=== PATIENT | female | born 1945 | race Caucasian/White ===

== ENCOUNTER 2023-02-14 12:19 | Emergency (ER) | payer OTHER, MEDICARE, SELFPAY ==
--- NOTE | 2023-02-14 12:21 | ED.UPPEXIN ---
HPI - Extremity Injury (Upper) General Chief Complaint: Wound/Laceration Stated Complaint: Thumb lac Time Seen by Provider: 02/14/23 12:40 Source: patient, family, RN notes reviewed and old records reviewed Mode of arrival: ambulatory Limitations: no limitations History of Present Illness HPI narrative: 76-year-old female is here today for left thumb laceration. Patient was using straight edge blade for wood crafting when the a blade slipped and cut her left thumb. Patient had tetanus vaccine in 2019. Patient is not on any blood thinners. Patient denies any crush injury. Bleeding controlled. complaint: injury to: left Related Data Allergies Allergy/AdvReac Type Severity Reaction Status Date / Time amoxicillin Allergy Intermediate Hives Verified 02/14/23 12:22 Review of Systems Review of Systems: Constitutional : No Weight loss, No Fever, No Chills, No Night Sweats, No Fatigue, No Malaise Musculoskeletal : No joint pain, No Myalgias, No Joint Swelling Skin : No Skin Lesions, No rash, left thumb laceration Neuro : No Weakness, No Numbness, No Paresthesias, No Loss of Consciousness, No Dizziness, No Headache Psych : No Anxiety/Panic, No Depression, No SI/HI/AH/VH, No Social Issues, Yes all other systems are reviewed and are negative PMFSH Social History Social History Advance Directives: No Advance Directives Information Provided: No Physical Exam Vital Signs: Vital Signs: Last Vital Signs Temp 97.9 F 02/14/23 12:22 Pulse 70 02/14/23 12:22 Resp 16 02/14/23 12:22 BP 160/86 H 02/14/23 12:22 Pulse Ox 96 02/14/23 12:22 BMI result Body Mass Index 20.4 Const: General: healthy appearing, no acute distress and well developed Nutritional Appearance: well nourished Skin: Other: Laceration to left thumb General skin exam: turgor normal and dry skin Trauma: laceration (L thumb) Course Course Course Narrative: RME: 77yo F w/no sig PMHx c/o laceration to L some s/p using a razor blade to cut wood [employer]. Tetanus unknown. Denies crush injury 2 cm laceration noted to left PIP. Active bleeding Tdap and lidocaine ordered Full HPI, ROS and PE to be performed by primary ED provider. 77-year-old female is here today for left thumb laceration. Patient was using straight edge blade for wood crafting when the a blade slipped and cut her left thumb. Patient had tetanus vaccine in 2019. Patient is not on any blood thinners. Patient denies any crush injury. Bleeding controlled . Patient reports that she is taking fish oil. Total 7 stitches. Patient will return to ED in 10 days for stitch removal or her own PCP Medications Administered Discontinued Medications Generic Name Dose Route Start Last Admin Trade Name Ana PRN Reason Stop Dose Admin Bacitracin 1 appl 02/14/23 13:25 02/14/23 13:27 Bacitracin Oint 0.9 Gm Packet TOPICAL 02/14/23 13:26 1 appl ONCE ONE Administration Protocol Diphtheria/Tetanus/Acell Pertussis 0.5 ml 02/14/23 12:26 02/14/23 12:38 Diphth,Pertus(Acell),Tet Adult 0.5 Ml Syringe IM 02/14/23 12:27 Not Given .ONCE ONE Lidocaine HCl 5 ml 02/14/23 12:26 02/14/23 12:35 Lidocaine Hcl 1 % Mpf 5 Ml Vial INFILTRATI 02/14/23 12:27 5 ml ONCE ONE Administration Procedures Laceration Laceration 1: Site: other ( thumb) Side (If applicable): left Size (cm): 2.5 Description: flap and clean Depth: simple, single layer Local Anesthetic: lidocaine 1% Pre-repair: irrigated extensively Skin layer closed with: nylon Size (cm): 4-0 Number of sutures: 7 Technique: simple, interrupted Discharge Plan Discharge Clinical Impression: Laceration Patient Disposition: Home, Self-Care Instructions: Laceration (ED) Additional Instructions: you were seen here today for laceration of your left thumb. Total 7 stitches done. Apply bacitracin. You should return for stitch removal in 10 days. Observe for increased redness, drainage and pain. You may take Tylenol for discomfort. Interventions: ED Discharge Assessment Last Done: 02/14/23 13:37
[2023-02-14 12:22] VITALS: BP 160/86; PULSE 70; RESP 16; TEMP 36.6; O2SAT 96; BMI 20.4
[2023-02-14] MEDS: Lidocaine HCl 1 % MPF 5 ML VIAL INFILTRATI (12:35)
[2023-02-14] MEDS: Bacitracin Oint 0.9 GM PACKET 1 APPL TOPICAL (13:27)
--- NOTE | 2023-02-14 13:37 | PC.NURSE ---
pt wound cleansed with NS, provider placed 7 sutures in thumb- bacitracin applied followed by nonstick dressing kerlix and tape- pt verbalizes understanding of dc instructions
== END 2023-02-14 13:55 | disposition home or self-care (01) ==
LOC: HO.ED 13:40
PROVIDERS: Emergency Provider Emergency Medicine; PCP Nurse Practitioner Primary Care
DX: S61.012A Laceration without foreign body of left thumb without damage to nail, initial encounter (principal); W26.8XXA Contact with other sharp object(s), not elsewhere classified, initial encounter; Y93.89 Activity, other specified; Y92.9 Unspecified place or not applicable; Y99.9 Unspecified external cause status; Z23 Encounter for immunization
CPT/HCPCS: 12001; 90471; 90715; 99282; 99284

== ENCOUNTER 2024-10-29 09:18 | Emergency (ER) | payer OTHER, MEDICARE, SELFPAY ==
[2024-10-29 09:24] VITALS: BP 139/86; PULSE 70; RESP 16; TEMP 36.1; O2SAT 100; BMI 22.1
[2024-10-29 10:04] LABS: MANUAL DIFF FLAG NO
[2024-10-29 10:06] LABS: Hematocrit 39.9 % (37.0-47.0); Hemoglobin 13.5 g/dl (12.0-16.0); Imm Gran Abs Auto 0.01 X10*3/uL (0.00-0.03); Imm Gran Pct Auto 0.2 % (0.0-0.4); Lymphocytes Absolute Auto 1.8 X10*3/uL (1.2-4.9); Mean Corpuscular HGB Conc 33.8 g/dl (31.0-35.0); Mean Corpuscular Hemoglobin 32.0 pg (27.0-33.0); Mean Corpuscular Volume 94.5 fL (80.0-98.0); NRBC Abs Auto 0.000 X10*3/uL (0.0-0.012); NRBC Pct Auto 0.0 /100WBC (0.0-0.2); Platelet Count 251 X10*3/uL (160-400); Red Blood Count 4.22 X10*6/uL (4.20-5.50); White Blood Count 5.8 X10*3/uL (4.8-10.8)
[2024-10-29 10:21] LABS: Alanine Aminotransferase 19 U/L (0-31); Albumin Level 4.4 g/dL (3.5-5.0); Alkaline Phosphatase 60 U/L (39-117); Anion Gap 13 (12-20); Aspartate Amino Transferase 21 U/L (5-31); Blood Urea Nitrogen 19 mg/dL (9-16); Calcium 9.4 mg/dL (8.4-10.2); Carbon Dioxide 29 mmol/L (22-29); Chloride 104 mmol/L (96-108); Creatinine Clr Calc Pharmacy 49.9; Estimated Glomerular Filt Rate > 60; Lipase 20 U/L (8-78); Potassium 4.5 mmol/L (3.3-5.1); Sodium 141 mmol/L (135-145); Total Protein 6.8 g/dL (6.5-8.0)
--- NOTE | 2024-10-29 10:28 | PC.NURSE ---
PAtient presents to ED c/o of diarrhea. Patient had recent foreign travel to [facility] for one week and returned one week ago. Symptoms started Wednesday, patient kept going to bathroom producing liquid only no solid stools denies blood in stool. Patient used imodium at home with some effect on Wednesday. Symptoms havent subsided. Unintentional weightloss of 6 pounds over a week, patient able to eat and drink ok. Denies fevers, chills, sick contacts. Pain in abdomen stomach cramps rated 3/10. + bowel sounds non tender. VSS and up to date. Provider in to see patient. Plan of care on going
--- OUTSIDE RECORDS SUMMARY | 2024-10-29 10:41 | XMS_ITS | Data Portability ---
Author Organization [place] - [facility], Allergy Address [address] [place] [id number] Care Team Providers Care Correspondence Review Clerk Name Role Phone PASCUALMESERET FIORE Primary Care Provider Assessment No assessment recorded. Plan of Treatment Reminders Order Date Submit Date Provider Last Modified By Organization Details Last Modified Time Details Appointments Establish ed 15 2025 09:45A M ADRIENNE EDWARDS MD Not available Not available Not available Lab None recorded. Referral None recorded. Procedures None recorded. Surgeries None recorded. Imaging None recorded. Medication Orders ipratropi um bromide 21 mcg (0.03 %) nasal spray 2024 025 [id number], [address] [place], [place], [phone], 08/31/2024 10:15:13 ipratropi um bromide 21 mcg (0.03 %) nasal spray 2024 025 [facility] #[id number], [address] [place], [place], [phone], 08/31/2024 09:56:48 Patient TargetsNo targets recorded. Patient InstructionsNo instructions recorded. Reason for Referral None Reported. Problems Name Problem SNOMED Code Status Onset Date Resolution Date Notes Provider Name and Address Organization Details Recorded Time Chronic rhinitis 65119213 Active 025 ADRIENNE EDWARDS MD [address] [facility],[place] [address], [place], [address] , [facility] 10:10:44 Problem Notes None recorded. Procedures Surgical History Date Name Laterality Status Provider Name and Address Organization Details Recorded Time JMSNasal/Sinus Endoscopy completed ADRIENNE EDWARDS MD [address], [address], [facility] 07/06/2024 10:18:15 nasal septoplasty completed ADRIENNE EDWARDS MD [address], [address], [facility] 07/09/2024 12:45:28 Imaging Results None recorded. Procedure Notes None recorded. Medical Equipment None Reported. Allergies Allergen ID Allergen Name Allergen Category Reaction Reaction Severity Criticality Documentation Date Start Date Code Code System Note Provider Name and Address Organization Details Recorded Time 327023 amoxicill in medicatio n Not available Not available Not available 07/06/2024 723 RxNorm Joseline manning [facility] 09:59:39 Medications Name Sig Start Date Stop Date Status Note LastModified by Organization Details LastModified Time azithromyci n 250 mg tablet TAKE 2 TABLETS BY MOUTH ONCE FOR 1 DAYS THEN 1 TABLET DAILY FOR 4 DAYS 08/31 completed Not Available Not Available Not Available acetazolami de 125 mg tablet TAKE 1 TABLET BY MOUTH TWICE DAILY. MAY BE DISCONTIN UED AFTER STAYING AT THE SAME ELEVATION FOR 2 TO 4 DAYS OR IF DESCENT IS INITIATED active Not Available Not Available No t Available fluorouraci l 5 % topical cream APPLY TWICE DAILY TO THE AFFECTED AREA ON THE NOSE FOR 4 WEEKS. EXPECT REDNESS AND IRRITATIO N 08/31 completed Not Available Not Available Not Available ketorolac 0.5 % eye drops INSTILL 1 DROP IN SURGICAL EYE THREE TIMES DAILY FOLLOWING SURGERY FOR 3 WEEKS 08/31 completed Not Available Not Available Not Available mupirocin 2 % topical ointment APPLY SMALL AMOUNT TOPICALLY TO THE AFFECTED AREA THREE TIMES DAILY 08/31 completed Not Available Not Available Not Available ipratropium bromide 21 mcg (0.03 %) nasal spray USE 2 SPRAYS IN EACH NOSTRIL THREE TIMES DAILY active Not Available Not Available No t Available Xiidra 5 % eye drops in a dropperette INSTILL 1 DROP INTO BOTH EYES DAILY 08/31 completed Not Available Not Available Not Available Vitals Date Recorded Body height Body mass index (BMI) Body weight Provider Name and Address Organization Details Last Updated DateTime 07/06/2024 160.02 cm 20.7 kg/m2 63058.31 sean Joseline Donna [facility] 07/06/2024 09:59:32 Date Recorded Body height Body mass index (BMI) Body weight Provider Name and Address Organization Details Last Updated DateTime 08/31/2024 160.02 cm 20.5 kg/m2 49454.71 sean Trevizo Donna [facility] 08/31/2024 09:56:30 Social History None recorded. Functional Status None recorded. Mental Status None recorded. Family History Nothing Reported. Medical History No medical history recorded. Gynecological HistoryNo gynecological history recorded. Obstetrics History GPAL:G 0 P 0 0 0 0 Past Encounters Encounter ID Performer Location Encounter Start Date Encounter Closed Date Diagnosis/Indication Diagnosis SNOMED-CT Code Diagnosis ICD10 Code Diagnosis Note [id number] ADRIENNE EDWARDS MD [facility] on [address] [place] [id number] 07/06/2024 09:39:22 07/06/2024 10:26:13 Chronic rhinitis 05765007 J31.0 78-year-ol d female with a history of septoplast y and long COVID presents today for chronic nasal drainage, worse on the right. Exam today reveals no active drainage. There is a tiny septal perforatio n. There is no polyps or purulence. She has had allergy workup in the past which did not really show any significan t allergens. She has tried over-the-c ounter medication s which have not been helpful. I recommende d trying ipratropiu m. If no improvemen t, would proceed with CT to evaluate for any chronic sinus findings which could be contributi ng to her symptoms. [id number] ADRIENNE EDWARDS MD [facility] on [address] [place] [id number] 08/31/2024 09:45:43 08/31/2024 10:19:47 Chronic rhinitis 32794857 J31.0 78-year-ol d female with a history of septoplast y and long COVID presents today for chronic nasal drainage, worse on the right. About 50% improvemen t with ipratropiu m. She has not been using it regularly 2 or 3 times a day so she will try it in this manner. Since there is partial response to the ipratropiu m, we will hold off on CT for now. Will reassess in about a year, and she would consider whether she would want evaluation for Clarifix or Rhinaer. Health Concerns Section Related Observation LastModified by Organization Detai ls LastModified Time None Recorded Concern Status LastModified by Organization Details LastModified Time None Recorded Advance Directives Directive None Recorded Payers Insurance Date Sequence Insurance Name Policy Number Policy Schuler Covered Member ID Schuler Member ID Guarantor Name 08/31/2024 2 [place] [employer] (POS) Brittany Beck [id number] Brittany Beck 07/10/2024 2 [place] [employer] Brittany Ruba [id number] Brittany Beck 08/31/2024 1 [place] [employer] Brittany Beck [id number] Brittany Beck Notes Date Note Type Note Provider Name and Address Organization Details Recorded Time 07/06/2024 text/html 78 yo F presents for chronic rhinitis chronic dripping right nose more than left for yearsseptoplasty years ago helped bronchitis and pneumoniabetter illness this yearworse with walking around previously frequent sinus infectionsnot since 2019did have severe COVID - long covid no sinus imaging for years has some seasonal allergies, mostly otc antihistamine, flonase, minimal results, no ipratropiumallergy testing several years ago, no significant no head traumano glaucoma ADRIENNE EDWARDS MD [address] [place] [address],[address], [address], [place] - [facility] 07/09/2024 12:48:30 08/31/2024 text/html 2 sprays on the right, once on the lefthelps 50/50has reduced nose blowingexercising can bring drainage on ADRIENNE EDWARDS MD [address] [place] [address],[address], [address], [place] - [facility] [place] 08/31/2024 12:42:47 OBGyn Episode No OBEpisode recorded.
[2024-10-29 10:46] VITALS: BP 141/88; PULSE 67; RESP 16; TEMP 36.6; O2SAT 97
[2024-10-29 11:05] LABS: Appearance Urine Clear; Glucose Urine UA Negative (Negative); PH 5.5 (5.0-9.0); Specific Gravity - Urine 1.015 (1.005-1.025)
--- NOTE | 2024-10-29 11:19 | ED_ITS ---
HPI - Nausea/Vomiting/Diarrhea General Chief complaint: Nausea/Vomiting/Diarrhea Stated complaint: Diarrhea Time Seen by Provider: 10/29/24 10:36 Source: patient Mode of arrival: ambulatory Limitations: no limitations History of Present Illness ED Provider: Ailin Gaytan NP HPI Narrative: Patient is a 79-year-old female with past medical history of chronic rhinitis, actinic keratosis who presents emergency department for evaluation. She reports over the past week she has been experiencing couple episodes of watery diarrhea 10+ episodes daily without hematochezia, melena, mucus in stools, fever, chills, nausea, vomiting. She has diffuse abdominal cramping that does alleviate some after passing her bowels. One day during this patient did use Imodium which did alleviate her symptoms but this was only for a couple of doses for 1 day, and without use she had persistent diarrhea. She does report that the day prior to symptom onset she had just returned home from a 1 week trip to [facility], reports that she does not believe that she came in contact with any contaminated water however she was eating local foods, and consumed fermented Meniere's milk while there. Reports others that she had traveled with we are experiencing similar symptoms as well. She has a history of normal colonoscopies, last was a few years ago and was cleared to not require any additional. No recent unintentional weight loss. Related Data Previous Rx's ?Medication ?Instructions ?Recorded ciprofloxacin HCl 500 mg tablet 500 mg PO BID #12 tabs 10/29/24 Allergies Allergy/AdvReac Type Severity Reaction Status Date / Time amoxicillin Allergy Intermediate Hives Verified 10/29/24 09:29 Review of Systems 2 Review of Systems: Yes all other systems are reviewed and are negative PMFSH Past Medical History Attestation statement: The following information was validated with the patient. Source: old records reviewed Social History Social History Alcohol intake: current Alcohol type: wine and hard liquor Smoked in Last 30 Days: No Use of substances other than those prescribed or required for medical reasons: No Advance Directives: No Advance Directives Information Provided: No Do you have a plan to hurt others: No Plan Physical Exam 2 Exam: Exam: Appearance: Alert.?Oriented to person, place and time. No acute distress.?Normal affect. CVS: Heart sounds normal. Normal heart rate and rhythm.? Pulses normal.?? Respiratory: No respiratory distress.? Lung sounds clear to auscultation bilaterally?? Abdomen: Soft with mild diffuse lower abdominal tenderness upon palpation. History of appendectomy. No CVA tenderness. Normoactive bowel sounds. Skin: Skin warm and dry.? Normal skin color.? Extremities: No lower extremity edema.? No calf ttp? Neuro: Moves all extremities spontaneously. Sensation intact bilaterally. Ambulates with normal steady gait. Vital Signs: Vital Signs: Last Vital Signs Temp 97.9 F 10/29/24 10:46 Pulse 67 10/29/24 10:46 Resp 16 10/29/24 10:46 BP 141/88 H 10/29/24 10:46 Pulse Ox 97 10/29/24 10:46 O2 Del Method Room Air 10/29/24 10:46 BMI result Body Mass Index 22.1 Medical Decision Making Medical Decision Making MDM Narrative: Patient is a 79-year-old female with past medical history of chronic rhinitis, actinic keratosis who presents emergency department for evaluation of 1 week of profuse watery diarrhea more than 10 episodes daily in the setting of recent travel without hematochezia, melena, mucus in stool fevers, chills, nausea, vomiting. Has mild diffuse abdominal cramping that alleviates a bowel movement, on examination she has mild diffuse tenderness in the bilateral lower quadrants, history of appendectomy. No associated symptoms. Concern at this time for traveler's diarrhea, however given her extensive bouts of diarrhea throughout the day, duration of her symptoms, feel that she would benefit from a course of antibiotics. Attempted to obtain stool specimen in the emergency department to send for further evaluation; C difficile as well as GI panel, unfortunately she was unable to have a bowel movement while in the department this was not able to be sent. Given her age, tenderness in the lower abdomen on examination I discussed my concern for diverticulitis, reviewed obtaining CT scan of the abdomen and pelvis however she feels strongly that she would not like to have this performed, she is more inclined to think that this is traveler's diarrhea. I did discuss with her that the anticipated course of treatment for diverticulitis would vary from that of traveler's diarrhea. She declines any interest in the CT scan at this time. I will send a course of antibiotics to her pharmacy, and recommend strict outpatient follow-up with her primary care doctor for persistent symptoms and was given return precautions. All questions answered.. Differential Diagnosis Differential Diagnoses: The differential diagnosis associated with the presentation includes (See narrative above) Admission/Observation Consideration of admission/observation: Escalation of care including admission/observation considered Lab Data MDM Lab Attestation statement: I reviewed the patient's lab results. CBC is without leukocytosis anemia or thrombocytopenia. No significant electrolyte derangement. No VETO. LFTs unremarkable. Urinalysis without evidence of infection or microscopic hematuria 10/29/24 10:00 10/29/24 10:00 Labs: Lab Results 10/29/24 10/29/24 Range/Units 10:00 10:51 WBC 5.8 (4.8-10.8) X10*3/uL RBC 4.22 (4.20-5.50) X10*6/uL Hgb 13.5 (12.0-16.0) g/dl Hct 39.9 (37.0-47.0) % MCV 94.5 (80.0-98.0) fL MCH 32.0 (27.0-33.0) pg MCHC 33.8 (31.0-35.0) g/dl RDW 12.4 (11.0-16.0) % Plt Count 251 (160-400) X10*3/uL MPV 10.0 (9.4-12.3) fL Immature Gran % (Auto) 0.2 (0.0-0.4) % Neut % (Auto) 52.2 (45-73) % Lymph % (Auto) 30.9 (20-40) % [place] % (Auto) 13.4 H (2-11) % Eos % (Auto) 2.4 (0-4) % Baso % (Auto) 0.9 (0-2) % Lymph # (Auto) 1.8 (1.2-4.9) X10*3/uL [place] # (Auto) 0.8 (0.1-1.2) X10*3/uL Eos # (Auto) 0.1 (0.0-0.4) X10*3/uL Baso # (Auto) 0.1 (0.0-0.2) X10*3/uL Abs Immat Gran (auto) 0.01 (0.00-0.03) X10*3/uL Absolute Neuts (auto) 3.0 (2.0-8.3) x10*3/uL Absolute Nucleated RBC 0.000 (0.0-0.012) X10*3/uL Nucleated RBC % (auto) 0.0 (0.0-0.2) /100WBC Sodium 141 (135-145) mmol/L Potassium 4.5 (3.3-5.1) mmol/L Chloride 104 (96-108) mmol/L Carbon Dioxide 29 (22-29) mmol/L Anion Gap 13 (12-20) BUN 19 H (9-16) mg/dL Creatinine 0.78 (0.5-1.4) mg/dL Estim Creat Clear Calc 49.9 Estimated GFR > 60 Random Glucose 89 (60-115) mg/dL Calcium 9.4 (8.4-10.2) mg/dL Total Bilirubin 0.5 (0.0-1.0) mg/dL AST 21 (5-31) U/L ALT 19 (0-31) U/L Alkaline Phosphatase 60 (39-117) U/L Total Protein 6.8 (6.5-8.0) g/dL Albumin 4.4 (3.5-5.0) g/dL Lipase 20 (8-78) U/L Urine Color Yellow Urine Appearance Clear Urine pH 5.5 (5.0-9.0) Ur Specific [place] 1.015 (1.005-1.025) Urine Protein Negative (Neg-Trace) mg/dL Urine Glucose (UA) Negative (Negative) mg/dL Urine Ketones Negative (Negative) mg/dL Urine Blood Negative (Negative) Urine Nitrite Negative (Negative) Ur Leukocyte Esterase Negative (Negative) External Record Review External record reviewed: Outpatient record Tests considered The following testing was considered but not selected: See narrative above Prescription Management I considered prescription management with: Antibiotic Discharge Plan Discharge Clinical Impression: Traveler's diarrhea Patient Disposition: Home, Self-Care Instructions: Traveler's Diarrhea (ED) Additional Instructions: As discussed, please follow-up with your primary care provider within the next 3 days. Return with any new or worsening symptoms or concerns. Prescription for antibiotic has been sent to your pharmacy, please complete the entire course. Worrisome symptoms including fevers, chills, nausea, vomiting, worsening abdominal pain, blood in the stool, mucus in the stool, would warrant prompt re- evaluation. Prescriptions: New ciprofloxacin HCl 500 mg tablet 500 mg PO BID Qty: 12 0RF Referrals: Estefania Hawthorne NP [Primary Care Provider, Family Practice] Print Language: Divehi
[2024-10-29 13:23] VITALS: BP 118/74; PULSE 61; RESP 16; TEMP 36.6; O2SAT 97
== END 2024-10-29 13:25 | disposition home or self-care (01) ==
PROVIDERS: Emergency Provider Emergency Medicine; PCP Nurse Practitioner Primary Care
DX: R11.2 Nausea with vomiting, unspecified (principal); R19.7 Diarrhea, unspecified; Z79.899 Other long term (current) drug therapy
CPT/HCPCS: 36415; 80053; 81003; 83690; 85025; 99283; 99284